=== PATIENT | male | born 1950 | race Hispanic/Latino ===

== ENCOUNTER 2019-08-05 10:55 | Day surgery (SDC) | payer MEDICARE ==
[~2019-08-05 10:55] MED LIST: APRACLONIDINE 1% OPHTH SOLN DROPERETTE ONE; PHENYLEPHRINE 10% OPHTH SOLN 5 ML ONE; TROPICAMIDE 1% OPHTH SOLN 3 ML ONE
[2019-08-05] MEDS ORDERED: PHENYLEPHRINE 10% OPHTH SOLN 5 ML OD ONE (11:24)
[2019-08-05] MEDS ORDERED: APRACLONIDINE 1% OPHTH SOLN DROPERETTE OD ONE (11:24)
[2019-08-05] MEDS ORDERED: TROPICAMIDE 1% OPHTH SOLN 3 ML OD ONE (11:24)
[2019-08-05 12:29] VITALS: BP 160/69
== END 2019-08-05 10:56 | disposition home or self-care (01) ==
LOC: OR 10:55
PROVIDERS: ATTEND Specialist
DX: E11.36 Type 2 diabetes mellitus with diabetic cataract (principal); H26.491 Other secondary cataract, right eye; E11.39 Type 2 diabetes mellitus with other diabetic ophthalmic complication; H40.9 Unspecified glaucoma; I10 Essential (primary) hypertension; K21.9 Gastro-esophageal reflux disease without esophagitis; Z98.890 Other specified postprocedural states; Z79.899 Other long term (current) drug therapy; Z79.84 Long term (current) use of oral hypoglycemic drugs; Z98.41 Cataract extraction status, right eye; Z87.891 Personal history of nicotine dependence
CPT/HCPCS: 82962